=== PATIENT | male | born 1955 | race Caucasian/White ===

== ENCOUNTER → 2016-12-29 | Outpatient (CLI) | payer OTHER | END | disposition home or self-care (01) | LOC: LAB.O 07:02 | PROVIDERS: ATTEND Family Medicine | DX: G62.9 Polyneuropathy, unspecified (principal) ==

== ENCOUNTER → 2017-04-22 | Outpatient (CLI) | payer OTHER ==
--- NOTE | 2017-04-22 17:15 | RAD ---
EXAM DESCRIPTION: Hip,Left 2 Views CLINICAL HISTORY: HIP PAIN COMPARISON: None Available. TECHNIQUE: AP/frog leg lateral FINDINGS: There is no bone, joint, or soft tissue abnormality. No fracture or dislocation is seen and very little if any degenerative arthropathy is noted. IMPRESSION: Normal study Electronically signed by: Iban Gibson MD 04/22/2017 5:14 PM CDT
--- NOTE | 2017-04-22 17:16 | RAD ---
EXAM DESCRIPTION: Pelvis CLINICAL HISTORY: 61 years Male, HIP PAIN COMPARISON: May 07, 2015 FINDINGS: The bony pelvis is intact without fracture or deformity or other abnormalities. No soft tissue masses are seen. No destructive changes are noted. IMPRESSION: Negative pelvis with little change from prior study. Electronically signed by: Iban Gibson MD 04/22/2017 5:15 PM CDT
== END | disposition home or self-care (01) ==
LOC: RAD 07:26
PROVIDERS: ATTEND Orthopaedic Surgery
DX: M25.562 Pain in left knee (principal); M25.552 Pain in left hip

== ENCOUNTER → 2017-10-21 | Outpatient (CLI) | payer OTHER ==
--- NOTE | 2017-10-22 16:42 | MRI ---
EXAM DESCRIPTION: Lumbar Spine w/o Contrast MRI. CLINICAL HISTORY: RADICULOPATHY COMPARISON: None. TECHNIQUE: Multiplanar, multiple standard sequences, non contrast MRI, lumbar spine. FINDINGS: L5-S1: No significant disc bulge with disc space preserved. Mild arthrosis left facet and left flavum ligament hypertrophy. Moderate left foraminal narrowing mild right foraminal narrowing. Canal is patent. L4-5: Disc desiccation with posterior tiny midline bulge with annular fissure. Bilateral ligament hypertrophy mild right facet arthrosis. Moderate canal narrowing. Bilateral foramina are patent. L3-4: Normal signal in the disc with no significant bulging. Mild canal narrowing due to shortened pedicles. Minimal ligament hypertrophy. Facets are unremarkable. L2-3: Minimal disc desiccation with anterior bulging and small marginal spurs. No posterior bulging. Bilateral facets are unremarkable. Bilateral shortened pedicles and mild canal narrowing. Bilateral foramina are patent. L1-2: Normal signal in the disc and disc space preserved. Canal and foramina are patent. Facets and ligaments negative. Conus terminates at L1. T12-L1: Normal signal in the disc and disc space preserved. Canal and foramina patent. Posterior elements unremarkable. Paravertebral soft tissues unremarkable.. Normal marrow signal in the remaining vertebral bodies and the posterior elements. Vertebral bodies are not compressed at any level. IMPRESSION: 1. Moderate left foraminal narrowing L5-S1 with left facet arthrosis and flavum ligament hypertrophy. Correlate for left L5 radiculopathy. 2. Posterior midline L4-5 desiccated disc bulge. Moderate canal narrowing. 3. Mild canal narrowing due to bony morphology at L3-4 and ligament hypertrophy, with normal disc. 4. L2-3 disc desiccation and anterior bulging and marginal spurs. Mild canal narrowing. Electronically signed by: Manjit Menjivar MD 10/22/2017 4:41 PM CLIENT FINANCE ANALYST
== END ==
LOC: MRI 09-30 13:48
PROVIDERS: ATTEND Psychiatry & Neurology Neurology
DX: M51.16 Intervertebral disc disorders with radiculopathy, lumbar region (principal)

== ENCOUNTER → 2017-10-28 | Outpatient (CLI) | payer OTHER | LOC: LAB.O 12:55 | PROVIDERS: ATTEND Psychiatry & Neurology Neurology | DX: R53.83 Other fatigue (principal); M54.12 Radiculopathy, cervical region; M54.16 Radiculopathy, lumbar region; R63.5 Abnormal weight gain; Z79.899 Other long term (current) drug therapy; Z79.01 Long term (current) use of anticoagulants ==

== ENCOUNTER → 2019-02-16 | Outpatient (CLI) | payer OTHER ==
--- NOTE | 2019-02-17 10:29 | MRI ---
EXAM DESCRIPTION: Lumbar Spine w/o Contrast : Magnetic Resonance Imaging. CLINICAL HISTORY: BACK PAIN COMPARISON: MRI scan lumbar spine without contrast 10/21/2017. TECHNIQUE: Multiplanar, multiple standard sequences, non contrast MRI, lumbar spine. FINDINGS: L5-S1: The disc space is imaged on axial T2-weighted series 501, image 2. No disc desiccation. No posterior bulging. Disc space maintained. Bilateral moderate neural foraminal narrowing more left than right. Left facet hypertrophic arthrosis and left flavum ligament thickening abutting the thecal sac. L4-L5: Minimal disc desiccation and disc space maintained. Posterior midline hyperintense T2 weighted annular fissure in the disc abutting the thecal sac. Minimal narrowing of the left subarticular recess. Bilateral mild hypertrophic facet arthrosis and ligament thickening. Mild to moderate canal narrowing. Mild to moderate bilateral foraminal narrowing. L3-L4: Normal signal in the disc and disc space maintained. Minimal thickening of the bilateral posterior ligaments and mild right facet arthrosis. Mild narrowing of the right foramen and mild to moderate narrowing of the left foramen. L2-L3: Desiccated disc with disc space maintained. Anterior disc bulge and endplate ridging. No posterior bulge. Right facet hypertrophic arthrosis and bilateral ligament thickening impressing on the thecal sac. Mild canal narrowing. L1-L2: Normal signal in the disc and disc space preserved. Schmorl's nodes superior L2 endplate. No posterior bulge. Posterior elements unremarkable. Canal and foramina are patent. Conus terminates just above the disc space. Normal signal in the included cord and conus, without contrast. Diffuse Modic type I endplate reactive changes in the inferior L1 endplate have progressed since the prior study. T12-L1: Normal signal in the disc and disc space preserved. No bulging. Posterior elements unremarkable. Canal and foramina are patent. Trace levoscoliosis L2-L4. Paravertebral soft tissues unremarkable. Otherwise normal marrow signal in the remaining vertebral bodies and the posterior elements. Vertebral bodies are not compressed at any level. IMPRESSION: 1. L4-L5 disc desiccated with posterior midline annular fissure and trace posterior bulge. Mild to moderate canal narrowing and foraminal narrowing stable since the prior study. 2. Bilateral moderate foraminal narrowing at L5-S1 more left than right is unchanged since the prior study. 3. Inferior endplate Modic type I reactive changes have progressed since the prior study but no significant disc desiccation at this level and no canal or foraminal stenosis. 4. Moderate right hypertrophic facet arthrosis and bilateral thickened posterior ligaments impressing on the thecal sac. This is more prominent than on the prior study Electronically signed by: Manjit Menjivar MD 02/17/2019 10:27 AM CDT
== END ==
LOC: MRI 11:41
PROVIDERS: ATTEND Nurse Practitioner Family
DX: M51.36 Other intervertebral disc degeneration, lumbar region (principal); M47.897 Other spondylosis, lumbosacral region

== ENCOUNTER → 2019-03-24 | Outpatient (CLI) | payer OTHER ==
--- NOTE | 2019-03-24 13:03 | US ---
EXAM DESCRIPTION: Venous,Lower Extremity LT: ULTRASOUND. CLINICAL HISTORY: LEFT LEG PAIN COMPARISON: None Available. TECHNIQUE: Jules-scale and doppler sonographic evaluation of the deep venous system of the left lower extremity. FINDINGS: Doppler evaluation shows normal color flow and normal phasicity and augmentation of the left common femoral vein, femoral vein, popliteal vein, greater saphenous vein junction, peroneal, and posterior tibial vein. The left lower extremity deep veins were completely compressible; normal occlusion with transducer pressure. Jules-scale survey showed no echogenic thrombus within these veins. Edema versus fluid abutting the left medial proximal tibia, consistent with patient's tenderness. IMPRESSION: 1. Duplex ultrasound evaluation of the left lower extremity deep venous system showing no evidence of thrombosis. 2. Edema or small fluid collection abutting the left medial proximal tibia where patient has tenderness. Electronically signed by: Manjit Menjivar MD 03/24/2019 1:01 PM CDT
--- NOTE | 2019-03-24 13:12 | RAD ---
EXAM DESCRIPTION: Tibia/Fibula,Left: CR/DR/XR. CLINICAL HISTORY: 63 years Male, LEFT LEG SWELLING COMPARISON: Left knee radiographs 01/15/2016. TECHNIQUE: 4 views proximal and distal left tibia and fibula. FINDINGS: Prior placement of left knee total arthroplasty. Approximately 17 cm distal to the articular surface of the tibial component, is the center of abdomen irregular region of decreased density with ill-defined margins and ill-defined zone of transition. Measuring approximately 7.6 cm craniocaudal and involving the entire width of the bone. No cortical destruction or periosteal reaction is seen. Lateral view shows endosteal scalloping. Similar decreased density with irregular margins in the corresponding left fibula, at a slightly lower level. Minimal endosteal scalloping also seen on the lateral view. Soft tissue swelling noted abutting the bones. No abnormal radiodense material. IMPRESSION: Infiltrative process involving the proximal shafts of the tibia and fibula at almost the same level with soft tissue swelling but no definite cortical destruction. Endosteal scalloping also noted. Differential includes inflammatory process such as osteomyelitis with cellulitis, or a primary or secondary neoplastic process. Consider MRI scan of the involved tibia and fibula. If left total knee arthroplasty causes significant signal degeneration, multiplanar CT scan should be considered. Electronically signed by: Manjit Menjivar MD 03/24/2019 1:09 PM CDT
== END ==
LOC: RAD 11:08
PROVIDERS: ATTEND Family Medicine
DX: M79.606 Pain in leg, unspecified (principal); R60.9 Edema, unspecified; Z96.652 Presence of left artificial knee joint

== ENCOUNTER → 2019-04-13 | Outpatient (CLI) | payer OTHER ==
--- NOTE | 2019-04-13 18:07 | RAD ---
EXAM DESCRIPTION: Hip,Left 2 Views (accession [id number]), Pelvis (accession [id number]) CLINICAL HISTORY: 63 years, Male, M25.552. Pain. COMPARISON: Pelvic radiograph 04/22/2017. TECHNIQUE: Frontal view of the pelvis. AP and frog leg views of the left hip FINDINGS: Images of the pelvis and left hip demonstrate no acute displaced fracture or dislocation. The left hip joint intact. There is mild bilateral hip osteoarthrosis with joint space narrowing subchondral sclerosis and small marginal osteophyte formation. Moderate bilateral sacroiliac joint degenerative changes. Mild degenerative changes of the symphysis pubis. The bone mineralization is preserved. IMPRESSION: 1. No acute osseous abnormality. Electronically signed by: Bakari Strauss DO 04/13/2019 6:06 PM CDT
--- NOTE | 2019-04-13 18:08 | RAD ---
EXAM DESCRIPTION: Hip,Left 2 Views (accession [id number]), Pelvis (accession [id number]) CLINICAL HISTORY: 63 years, Male, M25.552. Pain. COMPARISON: Pelvic radiograph 04/22/2017. TECHNIQUE: Frontal view of the pelvis. AP and frog leg views of the left hip FINDINGS: Images of the pelvis and left hip demonstrate no acute displaced fracture or dislocation. The left hip joint intact. There is mild bilateral hip osteoarthrosis with joint space narrowing subchondral sclerosis and small marginal osteophyte formation. Moderate bilateral sacroiliac joint degenerative changes. Mild degenerative changes of the symphysis pubis. The bone mineralization is preserved. IMPRESSION: 1. No acute osseous abnormality. Electronically signed by: Bakari Strauss DO 04/13/2019 6:06 PM CDT
== END ==
LOC: RAD 08:52
PROVIDERS: ATTEND Orthopaedic Surgery
DX: M25.552 Pain in left hip (principal)

== ENCOUNTER → 2019-04-19 | Outpatient (CLI) | payer OTHER ==
--- NOTE | 2019-04-19 12:58 | MRI ---
Study: MRI of the Left Tibia/Fibula. Indication: DISORDERS OF BONE DENSITY AND STRUCTURE, LEFT LEG Technique: Multiplanar, multi sequence MRI of the left tibial/fibula was obtained without intravenous contrast. Comparison: Radiographs March 24, 2019. Findings: Left total knee arthroplasty partially visualized within the field of view. A large aggressive lesion noted of the proximal tibial metadiaphysis. The superior margin of the lesion is approximately 7.8 cm inferior to the tibial plateau. The lesion extends over a craniocaudal length of at least 12 cm. The lesion measures up to 4.8 cm AP by 4.8 cm transverse. It is T1 hypointense and STIR hyperintense. Marked thinning and erosion throughout the cortex at this site and most pronounced at the posterior two thirds of the circumference. Associated multilobular soft tissue component extends beyond the confines of the cortex and abuts the adjacent musculature of the posterior tibialis, flexor digitorum longus, tibialis anterior, and extensor digitorum muscle bellies which demonstrate varying degrees of intramuscular edema. Mild amorphous elevated STIR signal noted throughout the medullary cavity of the mid to distal tibial shaft and is nonspecific but likely stress-related. No displaced fracture. In addition, there is a 3.8 cm craniocaudal by 1.3 cm AP by 0.9 cm similar-appearing aggressive lesion within the mid fibular shaft, centered approximately 16 cm distal to the superior margin fibular head. Erosive change of the cortex noted at this site as well. Impression: Aggressive lesions within the left proximal tibial metadiaphysis as well as the mid fibular shaft. These lesions are concerning for metastatic disease given multiplicity. Primary malignancy, however good give this appearance as well. Orthopedic oncology consultation recommended as well as histologic analysis. Additional findings as above.. Electronically signed by: Obdulio Rushing MD 04/19/2019 11:11 AM CDT
--- NOTE | 2019-04-19 14:04 | NM ---
EXAM DESCRIPTION: Bone Scan, Whole Body CLINICAL HISTORY: DISORDERS OF BONE DENSITY AND STRUCTURE OF LEFT LOWER LEG COMPARISON: MR left tib-fib dated April 19, 2019 MR lumbar spine dated February 16, 2019 TECHNIQUE: Following intravenous administration of 26.1 mCi technetium 99m MDP, whole body and spot scintigraphic imaging was performed. FINDINGS: Skull: A focus of increased uptake in the left frontal osseous calvarium. Spine: Focus of increased uptake in the posterior spinous process of T3. Very subtle asymmetric increased uptake of the L1 vertebral body Thorax: Symmetric homogeneous physiologic uptake within the bilateral ribs and sternum. Abdomen and pelvis: Asymmetric increased uptake to the left sacrum. Subtle increased uptake left pubic ramus. Extremities: Subtle focus of increased uptake in the right humeral shaft. Intense increased uptake involving the proximal left tibial shaft which corresponds to the aggressive lesion seen in the proximal left tibia on correlative MR left tibia. More subtle focus of increased uptake demonstrated of the mid left fibula shaft. Subtle asymmetric increased uptake of the greater and lesser trochanteric as well as intertrochanteric line of the proximal left femur. Degenerative uptake of the bilateral shoulders, elbows, and ankles. Soft tissue: Urinary activity in the left kidney and urinary bladder. No urinary activity in the expected location of the right kidney. Please correlate for prior right nephrectomy versus right renal atrophy versus congenital absence of the right kidney. Urine contamination over the soft tissues involving the male genitalia region. IMPRESSION: 1. Intense increased uptake involving the proximal left tibial shaft corresponding to aggressive lesion seen on the correlative left tibia MRI, concerning for malignancy/metastatic involvement. 2. Multifocal areas of increased uptake, although to a lesser degree of intensity compared to the left tibial lesion, involving the left frontal calvarium, left mid humeral shaft, T3 spinous process, L1 vertebral body, left sacrum, left pubic ramus, and mid left tibial shaft. These are concerning for osteoblastic metastatic involvement. 3. Subtle asymmetric increased uptake of the left greater and lesser trochanter as well as the intertrochanteric line. This may represent reactive uptake. However, left femur radiograph is recommended to evaluate for possible pathologic fracture as clinically appropriate. 4. No urinary activity in the expected location of the right kidney. Please correlate for prior right nephrectomy versus right renal atrophy versus congenital absence of the right kidney. Electronically signed by: Gibran Villasenor MD 04/19/2019 2:03 PM CDT
== END ==
LOC: NM 07:35
PROVIDERS: ATTEND Orthopaedic Surgery
DX: M85.862 Other specified disorders of bone density and structure, left lower leg (principal)

== ENCOUNTER → 2019-04-25 | Outpatient (CLI) | payer OTHER ==
--- NOTE | 2019-04-25 14:01 | RAD ---
EXAM DESCRIPTION: Humerus,Left: CR/DR/XR. CLINICAL HISTORY: 64 years Male, BONE LESION LEFT TIBIA. Abnormal bone scan finding distal mid left humerus. COMPARISON: Radionuclide bone scan 04/19/2019. Radiographs of the left hip today and multiple CT scans on this visit. TECHNIQUE: 2 views AP and lateral left humerus. FINDINGS: In the mid diaphysis of the left humerus there is ill-defined low-density in the medullary cavity. This measures approximately 10 cm on the laterally rotated shoulder and AP left humerus view. The upper aspect of this low-density is at the level of the deltoid tuberosity. No fracture. No cortical destruction. No gross soft tissue mass no abnormal radiodense objects in the soft tissues. Normal bone density in the adjacent left ribs. IMPRESSION: Approximately 10 cm segment of decreased low-density in the medullary cavity which corresponds approximately to the region of increased activity/uptake on the recent CT scan. This could represent an infiltrative marrow lesion such as metastasis. No fracture or cortical destruction. Consider follow-up cross-sectional imaging such as CT or MRI. Electronically signed by: Manjit Menjivar MD 04/25/2019 2:00 PM CDT
--- NOTE | 2019-04-25 14:09 | RAD ---
EXAM DESCRIPTION: Hip,Left 2 Views: CR/DR CLINICAL HISTORY: 64 years Male, BONE LESION LEFT TIBIA. Abnormal activity in the right greater trochanter and proximal right femur on bone scan 04/19/2019. COMPARISON: Radiographs of the left humerus on this visit. Multiple CT scans on this visit. TECHNIQUE/FINDINGS: 2 views AP neutral and abduction left hip. Marrow slightly heterogeneous in the femoral head, femoral neck, greater trochanter, and proximal femur. No fracture. No cortical destruction. No abnormal radiodense objects in the soft tissues. IMPRESSION: Inhomogeneous decreased marrow in the left femoral head and the femoral neck and trochanteric region. No cortical destruction or fracture. Electronically signed by: Manjit Menjivar MD 04/25/2019 2:08 PM CDT
--- NOTE | 2019-04-25 15:04 | CT ---
EXAM DESCRIPTION: Abdoment/Pelvis w/o Contrast: Computed Tomography. CLINICAL HISTORY: 64 years Male LEFT TIBIAL NEOPLASM. Congenital absence right kidney. COMPARISON: CT scans neck and chest today. Radiographs of the left humerus and left hip today. Radionuclide bone scan and MRI scan left tibia fibula 04/19/2019. TECHNIQUE: Spiral-axial scans 5 x 5 mm intervals through the abdomen and pelvis with oral Gastrografin contrast. No IV contrast. (Patient only has one kidney) Coronal and sagittal 2.0 mm reconstructions. Axial - 1.25 mm reconstructions.Total Exam DLP: 1017.87 mGy-cm. This exam was performed according to our departmental CT dose-optimization program which includes automated exposure control, adjustment of the mA and/or kV according to patient size and/or use of iterative reconstruction technique; to reduce radiation dose to as low as reasonably achievable (ALARA). FINDINGS: Lung bases and pleura: Please see chest CT scan report. Liver, stomach, spleen, and adrenal glands: 1.7 cm fluid density lesion in the upper medial segment left hepatic lobe. 2.6 cm fluid density subcapsular lesion in the medial left hepatic lobe. Subcentimeter lesion in the posterior inferior right hepatic lobe, and in the dome of the right hepatic lobe are too small to characterize. Long axis of the right lobe of the liver is 19.1 cm. Minimal oral contrast in the stomach. Other solid organs are negative. Pancreas, Gallbladder, and Ducts: Gallbladder visualized. Normal caliber of the duct. Pancreas negative. Kidneys and Ureters: Right kidney absent consistent with clinical history. 2 mm radiodense stone in the inferior collecting system of the left kidney. 1 cm cyst in the upper collecting system. No hydronephrosis or perirenal fluid. 1 cm cyst in the mid kidney with fluid density less than 5 hu. Mesentery: No fatty stranding, no fascial thickening, no free air or fluid. Aorta: Normal caliber of the outer wall. No para-aortic mass or fluid. Small Bowel: Contains oral contrast, mostly distally. Small air-fluid levels distally. Normal caliber. Terminal Ileum/Cecum: Normal caliber including the appendix. Contains oral contrast. No inflammatory changes in the adjacent fat. Colon: Evaluation limited due to lack of complete filling with oral contrast. Redundancy of the hepatic flexure. Moderate amount of fecal matter. Minimal contrast enhancement distal to the hepatic flexure. Redundancy of the splenic flexure. Scattered diverticula. Moderate redundancy of the splenic flexure. Gas distention of the rectum. No obstruction. Multiple diverticula with no complications. Pelvic Organs: The prostate gland is slightly more larger to the right of midline in the left impressing on the seminal vesicles and the right paracentral base of the urinary bladder. Bladder is nondistended. No wall thickening. Spine and Bony Pelvis: A bony lytic lesion in the mid anterior left lateral sacrum also involving the SI joint in the adjacent left mid iliac bone. There is a cortical breech abutting the left iliopsoas muscle and the left gluteus minimus muscle. Interpreted to be almost 1 cm expansion of soft tissue mass into the left iliopsoas muscle with enlargement of the medial aspect of the muscle junction compared to the right iliopsoas muscle. The lesion does not involve sacral foramina. It measures approximately 4.0 x 4.5 cm in the transverse plane and 3.4 cm in the craniocaudal plane. No asymmetric lytic lesion or cortical destruction seen in the subcapital left femoral neck or proximal left femur where there was abnormal activity on the bone scan. Minimal spondylosis with levoscoliosis lumbar spine.. Abdominal Wall/Back Soft Tissues: Minimal diastases of the umbilicus with no bowel hernia. IMPRESSION: 1. 4 to 5 mm lytic lesion at the junction of the mid left sacral ala and the left iliac wing, also involving the intervening SI joint. Soft tissue mass expanding into the left iliopsoas muscle, and possibly laterally into the left gluteus minimus muscle. Most likely a metastasis, and related to destructive lesions in the left tibia and fibula on the bone scan. 2. 2 mm radiodense nonobstructing stones in in the left kidney. Also 1 cm cyst upper kidney. 3. 2 cystic lesions in the left hepatic lobe. Small low-density lesion in the upper and lower right hepatic lobe too small to be resolved by CT scan. Most likely cysts as well. Liver is enlarged. 4. Asymmetric mild enlargement of the prostate gland. 5. Evaluation of the colon limited due to lack of complete filling and distention with oral contrast. No bowel obstruction. Diverticulosis of the colon without complications. Electronically signed by: Manjit Menjivar MD 04/25/2019 3:02 PM CDT
--- NOTE | 2019-04-25 15:21 | CT ---
EXAM DESCRIPTION: Soft Tissue Neck: Computed Tomography CLINICAL HISTORY: 64 years Male, DIFFICULTY SWALLOWING. Mass in left lower leg. Abnormal bone scan. COMPARISON: CT scans of the chest abdomen and pelvis on this visit. Radiographs of the left humerus and left hip. TECHNIQUE: Spiral, axial 2.5 x 2.5 mm scans through the neck soft tissues without IV contrast. Sagittal and coronal 2.0 mm reconstructions. Total Exam DLP: 340.24 mGy-cm. This exam was performed according to our departmental CT dose-optimization program which includes automated exposure control, adjustment of the mA and/or kV according to patient size and/or use of iterative reconstruction technique; to reduce radiation dose to as low as reasonably achievable (ALARA). FINDINGS: Scans are limited due to lack of IV contrast. Airway is well demonstrated from the nasopharynx to the upper trachea. No effacement or displacement. Normal density and contour of the parotid glands, submandibular glands, and sublingual glands. Adipose soft tissue bilaterally is unremarkable. Lymph nodes noted around the salivary glands and in the paracervical spaces, carotid spaces, and parapharyngeal space. Heterogeneous thyroid. No dominant masses abutting the thoracic inlet. Mild spondylosis in the cervical spine. C5-6 and C6-7 with no significant canal or neural foraminal stenosis. IMPRESSION: No soft tissue mass noted in the soft tissues of the neck. Exam is limited due to lack of IV contrast. If these findings are not concordant with the clinical presentation, consider follow-up MRI scan of the neck soft tissues without and with IV contrast. Electronically signed by: Manjit Menjivar MD 04/25/2019 3:19 PM CDT
--- NOTE | 2019-04-25 16:21 | CT ---
EXAM DESCRIPTION: Chest w/o Contrast : Computed Tomography. CLINICAL HISTORY: 64 years Male BONE NEOPLASM. Left tibia and fibula. Abnormal bone scan showing increased activity in the upper thoracic spine posterior elements.. COMPARISON: CT scans of the neck abdomen and pelvis without IV contrast on this visit. Radiographs of the left humerus and left hip on this visit. Prior radionuclide bone scan showing abnormal activity in the upper posterior thoracic spine. TECHNIQUE: Spiral-axial scans at 5 x 5 mm intervals through the lungs and thorax without IV contrast. 2.5 x 5 mm lung algorithm axial reconstructions. Coronal and sagittal 2.0 Mm reconstructions. Total Exam DLP: 564.36 mGy-cm. This exam was performed according to our departmental dose-optimization program which includes automated exposure control, adjustment of the mA and/or kV according to patient size and/or use of iterative reconstruction technique; to reduce radiation dose to as low as reasonably achievable (ALARA). Nodule measurements under 10 mm are given as mean value of 3 axes diameters. FINDINGS: Lungs and large airways: 2 mm subpleural nodule in the superior segment of the left lower lobe on series number 8, image 62 not seen on the prior study. 3 mm stephen-fissural nodule on the left major fissure, image 8/61. Smaller nodule on image 8/71. Bilateral bibasilar posterior dependent atelectasis more prominent on the right. Pleural parenchymal scarring left lower lobe and inferior lingula. 2 mm subpleural solid dense nodules in the anterior right upper lobe on image 8/28. These were not visualized on the prior study, but this may be due to prior technique with larger scan thickness and non-lung algorithm. No abnormally size nodules or masses. No focal infiltrates. Pleural spaces: Bilateral regions of focal pleural thickening. No pleural calcification, pleural effusion, or pneumothorax. Mediastinum and Miriam: Evaluation limited due to lack of IV contrast. No enlarged lymph nodes or dominant soft tissue masses. Great vessels and Heart: Evaluation limited due to lack of IV contrast.. Negative. Soft tissues of neck base, axillae, and chest wall: Evaluation limited due to lack of IV contrast.. No enlarged lymph nodes or soft tissue masses. Upper abdomen: Please see abdominal pelvic CT scan report. Osseous structures: Narrowing of disc spaces at several levels of the thoracic spine. No destructive bone lesions or blastic lesions. 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 IMPRESSION: 1. Multiple 3 mm subpleural nodules and a 3 mm, stephen-fissural nodule on the left major fissure. These were not seen on the prior study which is most likely due to prior technique not optimized for lung visualization. 2.0 mm solid pulmonary nodule. No routine follow-up imaging is recommended. These guidelines do not apply to immunocompromised patients and patients with cancer. Follow up in patients with significant comorbidities as clinically warranted. For lung cancer screening, adhere to Lung-RADS guidelines. Reference: Radiology. 2017; 284(1):228-43. 2. 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 No large soft tissue mass posteriorly. No lytic or blastic thoracic spine lesion to correspond with abnormal findings on recent bone scan. Electronically signed by: Manjit Menjivar MD 04/25/2019 4:20 PM CDT
== END ==
LOC: CT 09:45
PROVIDERS: ATTEND Surgery Surgical Oncology
DX: D49.2 Neoplasm of unspecified behavior of bone, soft tissue, and skin (principal); M53.3 Sacrococcygeal disorders, not elsewhere classified; D75.89 Other specified diseases of blood and blood-forming organs; R91.8 Other nonspecific abnormal finding of lung field; K76.9 Liver disease, unspecified; N20.0 Calculus of kidney; N28.1 Cyst of kidney, acquired; K57.30 Diverticulosis of large intestine without perforation or abscess without bleeding; R16.0 Hepatomegaly, not elsewhere classified; N40.0 Benign prostatic hyperplasia without lower urinary tract symptoms; M47.894 Other spondylosis, thoracic region; R13.10 Dysphagia, unspecified

== ENCOUNTER 2019-08-21 05:07 | Day surgery (SDC) | payer OTHER ==
[2019-08-21] MEDS ORDERED: PROPARACAINE 0.5% OPHTH SOL 15 ML BTTL LEFT_EYE ONE (08:14)
[2019-08-21] MEDS ORDERED: MIDAZOLAM INJ 2 MG/2 ML VIAL ONE (08:15)
[2019-08-21] MEDS ORDERED: DEXAMETHASONE 0.1% OPHTH SOL 1 DROP LEFT_EYE ONE ×2 (08:23→08:31)
[2019-08-21] MEDS ORDERED: MOXIFLOXACIN HCL (OPHTH) 1 DROP DROPS LEFT_EYE ONE ×2 (08:23→08:30)
[2019-08-21] MEDS ORDERED: LIDOCAINE 1% MPF 2 ML VIAL INJ ONE (08:23)
[2019-08-21] MEDS ORDERED: TOBRAMYCIN SULF 0.3 % OPHT SOL 1 DROP LEFT_EYE ONE ×2 (08:24→08:31)
[2019-08-21] MEDS ORDERED: BRIMONIDINE 0.2% OPHTH DROPS LEFT_EYE ONE ×2 (08:24→08:31)
== END 2019-08-21 09:10 | disposition home or self-care (01) ==
LOC: AMB 05:07
PROVIDERS: ATTEND Ophthalmology
DX: H25.12 Age-related nuclear cataract, left eye (principal); Z79.82 Long term (current) use of aspirin; Z79.899 Other long term (current) drug therapy
CPT/HCPCS: 00142; 66984; J2250

== ENCOUNTER → 2020-06-27 | Outpatient (CLI) | payer OTHER | LOC: LAB.O 13:36 | PROVIDERS: ATTEND Internal Medicine Hematology & Oncology | DX: C90.00 Multiple myeloma not having achieved remission (principal) ==

== ENCOUNTER → 2020-07-22 | Outpatient (CLI) | payer OTHER | LOC: GMA MATASK 16:34 | PROVIDERS: ATTEND Family Medicine | DX: R00.0 Tachycardia, unspecified (principal) ==

== ENCOUNTER → 2020-09-03 | Outpatient (CLI) | payer OTHER | LOC: LAB.O 08:36 | PROVIDERS: ATTEND Internal Medicine Hematology & Oncology | DX: C90.00 Multiple myeloma not having achieved remission (principal) ==

== ENCOUNTER → 2020-10-21 | Outpatient (CLI) | payer BC | LOC: LAB.O 09:32 | PROVIDERS: ATTEND Internal Medicine Hematology & Oncology | DX: C90.00 Multiple myeloma not having achieved remission (principal) ==